=== PATIENT | female | born 1970 | race Two or more races ===

== ENCOUNTER → 2017-09-20 | Outpatient (CLI) | payer OTHER | LOC: CFH 08:03 | PROVIDERS: ATTEND Obstetrics & Gynecology Female Pelvic Medicine and Reconstructive Surgery | DX: Z12.31 Encounter for screening mammogram for malignant neoplasm of breast (principal); Z80.3 Family history of malignant neoplasm of breast | CPT/HCPCS: 77063; 77067 ==

== ENCOUNTER 2018-05-03 13:57 | Emergency (ER) | payer OTHER ==
[~2018-05-03] VITALS: Ht 167.6 cm; Wt 69.2 kg
[2018-05-03] MEDS ORDERED: SODIUM CHLORIDE 0.9% 1,000ML IVBOLUS ONE (15:00)
[2018-05-03] MEDS ORDERED: SODIUM CHLORIDE FLUSH 10ML SYR IVF ONE (15:00)
[2018-05-03 15:16] LABS: BASOPHILS # (AUTO) 0.01 x10^3/uL (0-0.1); BASOPHILS % (AUTO) 0 % (0-1); EOSINOPHILS # (AUTO) 0.08 x10^3/uL (0-0.4); EOSINOPHILS % (AUTO) 1 % (1-7); LYMPHOCYTES # (AUTO) 1.52 x10^3/uL (1-3.4); LYMPHOCYTES % (AUTO) 17 % (22-44); MD NO; MEAN CORPUSCULAR HEMOGLOBIN 30.7 pg (27.0-34.8); MEAN CORPUSCULAR HGB CONC 32.5 g/dL (32.4-35.8); MEAN CORPUSCULAR VOLUME 94.3 fL (80-100); MEAN PLATELET VOLUME 7.7 fL (7.4-10.4); MONOCYTES # (AUTO) 0.23 x10^3/uL (0.2-0.8); MONOCYTES % (AUTO) 3 % (2-9); NEUTROPHILS % (AUTO) 79 % (42-75); PLATELET COUNT 252 x10^3/uL (130-400); RED BLOOD COUNT 4.58 x10^6/uL (3.82-5.3); RED CELL DISTRIBUTION WIDTH 13.3 % (9.6-15.2)
[2018-05-03 15:26] LABS: % IRON SATURATION 26 % (20-55); ALBUMIN 3.4 g/dL (3.4-5.0); ANION GAP 8 mmol/L (5-15); CALCIUM 8.6 mg/dL (8.5-10.1); CHLORIDE 110 mmol/L (98-107); CREATININE 0.76 mg/dL (0.55-1.02); IRON LEVEL 102 mcg/dL (50-170); TOTAL IRON BINDING CAPACITY 389 mcg/dL (250-450)
[2018-05-03 15:40] LABS: MICROSCOPIC NOT IND
[2018-05-03 15:47] LABS: CULTURE INDICATED? NO
[2018-05-03 16:04] VITALS: BP 118/67
== END 2018-05-03 16:06 | disposition home or self-care (01) ==
LOC: ED 15:55
DX: R42 Dizziness and giddiness (principal); E86.0 Dehydration
CPT/HCPCS: 36415; 80048; 81003; 82040; 83540; 83550; 85025; 93005; 96360; 99285; J7030

== ENCOUNTER 2019-01-16 06:26 | Emergency (ER) | payer OTHER ==
[~2019-01-16] VITALS: Ht 167.6 cm; Wt 69.3 kg
[2019-01-16 06:28] VITALS: BP 131/61
--- NOTE | 2019-01-16 06:42 | NUR ---
pt presented with c/o painful rash on center back and under left breast. monitors applied, siderails up x2, call light within reach
--- NOTE | 2019-01-16 06:53 | NUR ---
REPORT GIVEN TO ZHAO MCKEON
--- NOTE | 2019-01-16 06:57 | NUR ---
Received bedside report from ZHAO Mathis. All questions answered. Assuming care of pt. ARAVIND. No needs expressed at this time. Call light within reach.
--- NOTE | 2019-01-16 07:14 | NUR ---
Patient given discharge instructions and they have confirmed that they understand the instructions. Patient ambulatory with steady gait. Pt left with d/c paperwork, prescriptions, and all personal belongings. Pt encouraged to return to ED if symptoms worsen.
== END 2019-01-16 07:17 | disposition home or self-care (01) ==
LOC: ED 07:08
DX: B02.9 Zoster without complications (principal)
CPT/HCPCS: 99283

== ENCOUNTER → 2020-06-24 | Outpatient (CLI) | payer OTHER | END | disposition home or self-care (01) | LOC: CFH 12:32 | PROVIDERS: ATTEND Obstetrics & Gynecology Female Pelvic Medicine and Reconstructive Surgery | DX: Z12.31 Encounter for screening mammogram for malignant neoplasm of breast (principal) | CPT/HCPCS: 77063; 77067 ==